=== PATIENT | male | born 1995 | race Caucasian/White ===

== ENCOUNTER 2019-05-27 15:38 | Emergency (ER) | payer SELFPAY ==
[2019-05-27 16:11] LABS: Hemoglobin 14.1 g/dL (14.0-18.0); Mean Corpuscular HGB CONC 35.1 g/dL (32.0-36.0); Mean Corpuscular Hemoglobin 30.7 pg (27.0-31.0); Mean Corpuscular Volume 87.3 fL (78.0-98.0); Mean Platelet Volume 6.2 fL (7.4-10.4); Platelet Count 383 thou/uL (130-400); RBC Distribution Width 11.4 % (11.5-14.5); White Blood Cell (WBC) Count 6.8 thou/uL (4.8-10.8)
[2019-05-27 16:33] LABS: ALT (SGPT) 9 U/L (8-55); AST (SGOT) 13 U/L (5-34); Albumin 4.5 g/dL (3.5-5.0); Alkaline Phosphatase 61 U/L (40-110); Anion Gap 17 mmol/L (10-20); BUN (Urea Nitrogen) 13 mg/dL (8.9-20.6); Bilirubin, Total 1.4 mg/dL (0.2-1.2); CK (CPK) 108 U/L (30-200); Calc. Creatinine Clearance 0 mL/min (70-130); Calcium 9.2 mg/dL (7.8-10.44); Carbon Dioxide 21 mmol/L (22-29); Chloride 105 mmol/L (98-107); Estimated GFR-MDRD 71; Globulin 2.8 g/dL (2.4-3.5); Glucose 152 mg/dL (70-105); Potassium 3.1 mmol/L (3.5-5.1); Protein, Total 7.3 g/dL (6.0-8.3); Sodium 140 mmol/L (136-145)
[2019-05-27 16:35] LABS: Eosinophils 2 % (0-10); Lymphocytes 53 % (21-51); MDiff Complete? YES; Monocytes 14 % (0-10); Neutrophil 29 % (42-75); Platelet Morphology Comment Appears Adequate; RBC Morphology Normal; Reactive Lymphocytes 2 % (0-10)
[2019-05-27] MEDS ORDERED: Lorazepam 2 MG/ML VIAL ONE (16:51)
[2019-05-27 17:14] LABS: Bacteria/HPF None Seen HPF (None Seen); Bilirubin Negative (Negative); Blood, Urine Negative (Negative); Clarity Clear (Clear); Glucose, Urine (Dipstick) Normal (Negative); Leukocyte Negative Leu/uL (Negative); Nitrite Negative (Negative); Protein, Urine (Dipstick) 30 mg/dL (Neg-Trace); RBC/HPF 0-3 HPF (0-3); Squamous Epithelial None Seen HPF (0-3); Urobilinogen Normal mg/dL (Less than 2); WBC/HPF 0-3 HPF (0-3)
[2019-05-27 17:23] LABS: Amphetamine Not Detected (NotDetected); Barbiturates Screen Not Detected (NotDetected); Benzodiazepine Screen Not Detected (NotDetected); Cocaine Metabolite Screen Not Detected (NotDetected); Medtox Control Line Valid? VALID (VALID); Medtox Reader # READER 1; Methadone Not Detected (NotDetected); Methamphetamine Not Detected (NotDetected); Opiate Screen Not Detected (NotDetected); Oxycodone Screen Not Detected (NotDetected); Phencyclidine (PCP) Not Detected (NotDetected); THC/Cannabinoid Screen Detected (NotDetected); Tricyclic Screen Not Detected (NotDetected)
== END 2019-05-27 18:13 | disposition home or self-care (01) ==
LOC: ERS 15:38
DX: F41.1 Generalized anxiety disorder (principal); F12.10 Cannabis abuse, uncomplicated
CPT/HCPCS: 80053; 80306; 81003; 81015; 82550; 85025; 93005; 96361; 96374; J2060